=== PATIENT | female | born 1975 | race Caucasian/White ===

== ENCOUNTER 2017-02-19 09:56 | Outpatient (CLI) | payer BC ==
[2017-02-19 11:00] LABS: #Basophils 0.1 thou/uL (0.0-0.2); #Eosinphils 0.4 thou/uL (0.0-0.7); #Lymphocytes 1.7 thou/uL (1.20-3.40); #Monocytes 0.7 thou/uL (0.11-0.59); #Neutrophils 3.3 thou/uL (1.40-6.50); %Basophils 1.4 % (0.0-1.0); %Eosinophils 6.9 % (0.0-10.0); %Monocytes 10.8 % (0.0-10.0); %Neutrophils 52.9 % (42.0-75.0); Mean Corpuscular HGB CONC 34.9 g/dL (32.0-36.0); Mean Corpuscular Hemoglobin 30.1 pg (27.0-31.0); Mean Corpuscular Volume 86.1 fl (81.0-99.0); Mean Platelet Volume 6.2 fL (7.4-10.4); Platelet Count 269 thou/uL (130-400); RBC Distribution Width 11.6 % (11.5-14.5); Red Blood Cell (RBC) Count 4.99 mill/uL (4.20-5.40); White Blood Cell (WBC) Count 6.2 thou/uL (4.8-10.8)
[2017-02-19 11:15] LABS: ALT (SGPT) 13 U/L (8-55); AST (SGOT) 12 U/L (5-34); Albumin 4.4 g/dL (3.5-5.0); Alkaline Phosphatase 53 U/L (40-150); Anion Gap 14 mmol/L (10-20); BUN (Urea Nitrogen) 14 mg/dL (7.0-18.7); Bilirubin, Total 0.5 mg/dL (0.2-1.2); Calc. Creatinine Clearance 0 mL/min (70-130); Carbon Dioxide 23 mmol/L (22-29); Cardiac Risk 2.9 (Less than 4.5); Chloride 105 mmol/L (98-107); Cholesterol 138 mg/dl (< 200 Desired); Estimated GFR-MDRD 67; Globulin 2.8 g/dL (2.4-3.5); Glucose 95 mg/dL (70-105); HDL Cholesterol 48 mg/dL (>60 Neg Risk); LDL Cholesterol, Calculated 80 mg/dL; Potassium 4.2 mmol/L (3.5-5.1); Protein, Total 7.2 g/dL (6.0-8.3); Sodium 138 mmol/L (136-145); Triglycerides 50 mg/dL (Less than 150)
[2017-02-19 11:24] LABS: Thyroid Stimulating Hormone 1.2741 uIU/mL (0.35-4.94); Vitamin D, 25 Hydroxy 27.3 ng/ml (> 30.0)
== END 2017-02-19 09:57 | disposition home or self-care (01) ==
LOC: HPCALD 09:56
PROVIDERS: ATTEND Family Medicine
DX: Z13.6 Encounter for screening for cardiovascular disorders (principal); R53.82 Chronic fatigue, unspecified
CPT/HCPCS: 36415; 80053; 80061; 82306; 84443; 85025

== ENCOUNTER 2018-08-31 09:02 | Outpatient (CLI) | payer OTHER ==
--- NOTE | 2018-08-31 20:22 | ULT ---
RIGHT UPPER QUADRANT ULTRASOUND: 08/31/18 Ultrasonography of the right upper quadrant was performed for evaluation of pain. The liver is upper normal in size measuring 15.7 cm in oblique sagittal length. Internally, no focal hepatic abnormalities were seen. There are no dilated ducts or other changes of concern. The gallblad dixon contains no signs of stones or wall thickening. There was a tiny trace of sludge in the gallbladd er but no stones. The common bile duct was a normal 5 mm wide. Right kidney was 10.8 cm long and appe ars normal. IMPRESSION: 1. Trace of sludge in the gallbladder. 2. Hepatic size upper normal. This may or may not be of significance. POS: HOME
== END 2018-08-31 09:03 | disposition home or self-care (01) ==
LOC: BURULT 09:02
PROVIDERS: ATTEND Family Medicine
DX: R10.11 Right upper quadrant pain (principal); K82.8 Other specified diseases of gallbladder
CPT/HCPCS: 76705

== ENCOUNTER 2022-05-01 07:55 | Outpatient (CLI) | payer BC | END 2022-05-01 07:56 | disposition home or self-care (01) | LOC: BURRAD 07:55 | PROVIDERS: ATTEND Family Medicine | DX: M79.671 Pain in right foot (principal); M19.071 Primary osteoarthritis, right ankle and foot ==

== ENCOUNTER 2022-09-01 11:31 | Outpatient (CLI) | payer BC | END 2022-09-01 11:32 | disposition home or self-care (01) | LOC: BURRAD 11:31 | PROVIDERS: ATTEND Nurse Practitioner Family | DX: M25.572 Pain in left ankle and joints of left foot (principal) ==